=== PATIENT | male | born 1960 | race Caucasian/White ===

== ENCOUNTER 2016-08-17 08:11 | Inpatient (IN) ==
[2016-08-17] MEDS: 0.9 % Sodium Chloride 1,000 ML IVC SCH (09:14)
[2016-08-17] MEDS ORDERED: 0.9 % Sodium Chloride 1,000 ML ONE (09:25)
[2016-08-17] MEDS ORDERED: *HR* Heparin 10,000 UNIT/10 ML VIAL ONE (09:25)
[2016-08-17] MEDS ORDERED: Heparin 1,000 UNITS/500 mL NS 500 ML ONE (09:25)
[2016-08-17] MEDS ORDERED: Verapamil 5 MG/2 ML VIAL ONE (09:43)
[2016-08-17] MEDS ORDERED: Nitroglycerin 1,000 MCG/10 ML VIAL IV ONE (09:43)
[2016-08-17] MEDS ORDERED: *HR* FentaNYL (PF) 100 MCG/2 ML VIAL ONE (09:44)
[2016-08-17] MEDS ORDERED: *HR* Midazolam HCl 2 MG/2 ML VIAL ONE (09:44)
[2016-08-17] MEDS ORDERED: Nitroglycerin Spray 4.9 GM BOTTLE ONE (09:54)
--- NOTE | 2016-08-17 10:10 | Pre-Sedation Evaluation ---
Pre-sedation evaluation - Pre-sedation checklist Date of procedure: 08/17/16 Procedure: left heart cath Recent Vitals: Last Vital Signs Temp 98.6 F 08/17/16 09:16 Pulse 89 08/17/16 09:16 Resp 15 08/17/16 09:16 BP 106/78 08/17/16 09:16 Pulse Ox 95 08/17/16 09:16 H&P (including ROS) documented in medical record: No Previous reaction to sedatives/anesthetics: No Dietary Status: NPO after Midnight ASA Classification *see protocol: CLASS II-Mild systemic disease Plan of Care: Pt appropriate candidate for procedure/moderate/conscious sedation , Risks/benefits of procedure/sedation discussed w/ patient/family
--- NOTE | 2016-08-17 10:11 | History & Physical Report ---
Date of Encounter: 08/17/16 Time of Encounter: 10:00 24 Hour HP Update - Instructions Instructions: If the History and Physical is less than 30 days old and was completed prior to A.M. admission and or procedure and has NOT been updated on calendar day of procedure please complete this update prior to performing procedure. - Update Patient reports changes in Medical Condition: No Changes in examination, assessment, or condition: No Changes in Medication: No Preop tests/diagnostics Reviewed: Yes Surgery Remains Indicated: Yes Consent for Planned Operative Procedure(s) Verified: Yes
[2016-08-17] MEDS ORDERED: *HR* HYDROcodone/Acet 5/325 mg TABLET PO PRN (10:16)
[2016-08-17] MEDS ORDERED: Ondansetron 4 MG/2 ML VIAL IVP PRN (10:16)
[2016-08-17] MEDS ORDERED: Nitroglycerin 0.4 MG TAB.SUBL SL PRN (10:16)
[2016-08-17] MEDS ORDERED: Acetaminophen 325 MG TABLET PO PRN (10:16)
[2016-08-17] MEDS ORDERED: *HR* Heparin 5,000 UNIT/ML VIAL IVP PRN ×2 (10:19)
[2016-08-17] MEDS ORDERED: *HR* Heparin 5,000 UNIT/ML VIAL IVP ONE (10:19)
--- NOTE | 2016-08-17 10:23 | Invasive Diagnostic Lab Proc ---
Name: Fransico Barton Date of Study: 08/17/2016 Date: 1960 Ht: 73.0in Medical Record#: [id number] Age: 55 Wt: 214.00lb Gender: Male BSA: 2.21 Order #: [id number] BMI: 28.23 Physicians Procedure Physician: Roby Carrasco MD, [facility] Referring MD: Referring MD: Staff Name Position Time In Aurora Marquis RT (R) Pre-Op RT(R) Skylar Dupont RN Pre-Op Nurse Lindy Cano RN Sample Collector 09:40 AM Niecy Pedersen RT (R) Scrub 09:40 AM Paul Slater RT (R) Monitor 09:40 AM Indications Indication Unstable Angina Abnormal Test - Stress Procedures Performed Procedure L HRT ARTERY/VENTRICLE ANGIO Pre-Procedure Checklist Informed consent is complete signed and on chart. H\\T\\P is on chart. ID band is on and ID verified with patient. Patient NPO for procedure The procedure was described for the patient and questions were answered. Blood Pressure: 136/71 ECG is on chart. Rhythm: NSR Plan of Care Patient will tolerate the procedure without complications. Adequate level of comfort will be maintained. Hemodynamics will remain stable Patient will recover from procedure without complications. Respiratory function will be maintained. Cardiac rhythm will remain stable. Patient temperature will be maintained. Patient and/or family have verbalized understanding of the procedure. Patient Education Chief Complaint/Reason for Test: Cardiac Cath Developmental Category: Adult (18-64 years) Developmentally Appropriate for Age: Yes Learning Barriers: None Education Needs: Procedure Education Method: Verbal Information Taught: Cardiac Cath Educational Evaluation: Able to repeat information Intravenous Access Time IV Size Location DC'd Fluid/Drip Rate Units RN 09:11 AM Started with 20g 1 1/4" Lt Antecubital 0.9NaCl 50 ml/hr Skylar Dupont RN Allergies No Known Allergies Vital Signs Time BP (mmHg) HR (bpm) O2 Sat. RR (bpm) LOC 09:06 AM 106 / 78 89 95 % 15 5 = Fully awake and oriented or at pre-proc level 09:39 AM / % 5 = Fully awake and oriented or at pre-proc level 09:39 AM / % 4 = Oriented but drowsy 09:44 AM 136 / 71 79 96 % 17 09:46 AM 130 / 82 79 96 % 15 09:49 AM 122 / 79 84 94 % 20 09:52 AM 124 / 68 81 93 % 18 09:55 AM 123 / 74 81 93 % 18 09:58 AM 91 / 63 103 91 % 18 10:02 AM 109 / 70 97 91 % 18 10:04 AM 114 / 75 93 92 % 21 10:07 AM 117 / 68 % 09:54 AM / % 5 = Fully awake and oriented or at pre-proc level Procedural Medications Time Medication Dose Units Method Given By 09:47 AM Versed 2 mg Intravenous Lindy Cano RN 09:47 AM Fentanyl 50 mcg Intravenous Lindy Cano RN 09:50 AM Lidocaine 2% 0.5 ml Subcutaneous Roby Carrasco MD, [facility] 09:54 AM Nitroglycerin 0.4 mcg Sublingual Lindy Cano RN 09:55 AM Heparin 4000 units Nitroglycerin 200 mcg Verapamil 2.5 mg Intraarterial Roby Carrasco MD, [facility] ASA Classification: CLASS II- Mild systemic disease (i.e. well-controlled diabetes, hypertension, asthma, cigarette smoking) Kimberlyn Score Preprocedure Postprocedure Activity 2- Moves 4 extremities sustained head lift Activity 2- Moves 4 extremities sustained head lift Circulation 2- SBP +/= 20 points of pre-anesthetic level Circulation 2- SBP +/= 20 points of pre-anesthetic level Consciousness 2- Awake and alert oriented x 3 Consciousness 2- Awake and alert oriented x 3 O2 Saturation 2- Able to maintain O2 satruation of 92% on room air O2 Saturation 2- Able to maintain O2 satruation of 92% on room air Respiratory 2- Able to deep breathe and cough well Respiratory 2- Able to deep breathe and cough well Total Score 10 Total Score 10 Contrast Agent: Isovue Diagnostic Contrast: 60 ml Total Contrast: 60 ml Fluoro Dose: 258 mGy Procedure Log Time Note Enter By 09:38 AM Pt arrived to [employer] 2 at 09:38 [email or web address] 09:38 AM Patient charges- Angio tray pack, Navilyst 3mm J, Pulse Oximetry and ACIST tubing and transducer [email or web address] 09:39 AM Case Delayed No [email or web address] 09:39 AM Physician arrived 09:39 [email or web address] 09:39 AM Sign in performed according to hospital policy. [email or web address] 09:39 AM Meet and greet completed [email or web address] 09:39 AM ASA Class CLASS II- Mild systemic disease (i.e. well-controlled diabetes, hypertension, asthma, cigarette smoking) 09:39 AM Procedure start :39 :39 AM Time: :39 Patient comfortable and pain free: Yes :39 AM Time: :39LOC: 5 = Fully awake and oriented or at pre-proc level bw:40 AM CathStat 09:40 AM Lindy Cano RN Position: Sample Collector Time in: :40 :40 AM Niecy Pedersen RT (R) Position: Scrub Time in: :40 09:40 AM Paul Slater RT (R) Position: Monitor Time in: :40 09:43 AM Vitals capture started with the following parameters, Patient=Adult, Interval=3 min, Initial Uqqidxzg=327 mmHg, Deflation Rate=5 mmHg, Cuff placed on Right Arm 09:43 AM Hair removed from procedure site in holding area using clippers. Bilateral groin prepped with Chloraprep by Niecy Pedersen RT (R), safety strap applied then patient was draped. Skin intact. 09:43 AM Hair removed from procedure site in holding area using clippers. Right wrist prepped with Chloraprep by Nieyc Pedersen (R), safety strap applied then patient was draped. Skin intact. 09:43 AM Clinical Presentation: Unstable angina 09:44 AM HR=79 bpm, YSHJ=595/71 mmhg, SpO2=96.0 %, Resp=17 B/min, Comment=NSR 09:46 AM HR=79 bpm, BOSU=592/82 mmhg, SpO2=96.0 %, Resp=15 B/min, Comment=NSR 09:47 AM Time: 09:47 Versed 2 mg Intravenous Given by Lindy Cano RN [facility] 09:47 AM Time: 09:47 Fentanyl 50 mcg Intravenous Given by Lindy Cano RN [place] [address] 09:49 AM HR=84 bpm, YPVM=754/79 mmhg, SpO2=94.0 %, Resp=20 B/min, Comment=NSR 09:50 AM Time out performed according to hospital policy [facility] 09:50 AM Time: 09:50 0.5 ml Lidocaine 2% to right radial Subcutaneous Given by Roby Carrasco MD, [place] [address] 09:51 AM Pressure channel 1 zeroed. 09:52 AM Unsuccessful access attempt # 1 into the right Radial artery. Manual pressure applied to achieve hemostasis.. 09:52 AM HR=81 bpm, EPDC=822/68 mmhg, SpO2=93.0 %, Resp=18 B/min, Comment=NSR 09:54 AM Time: 09:39LOC: 4 = Oriented but drowsy 09:54 AM Time: 09:39 Patient comfortable and pain free: Yes [place] [address] :54 AM Time: 09:54 Nitroglycerin .4 mcg Sublingual Given by Lindy Cano RN [place] [address] 09:55 AM Access obtained by percutaneous puncture. 5Fr 10cm Terumo Glidesheath sheath placed in right Radial artery. [id number] [place] [address] 09:55 AM 0.035 260cm Navilyst 3mmJ wire [id number] [place] [address] 09:55 AM HR=81 bpm, EHJD=218/74 mmhg, SpO2=93.0 %, Resp=18 B/min, Comment=NSR 09:55 AM Time: 09:55 Patient given 4,000 units Heparin, 200 mcg Nitroglycerin, and 2.5 mg Verapamil Intraarterial by Roby Carrasco MD, [facility] 09:56 AM 5Fr TIG catheter inserted over the wire [place] [address] 09:57 AM Recorded Pressure: LV, HR=99, Condition=Condition 1 (Left Ventricle) LV 85/8/9 09:57 AM Catheter selectively placed in left ventricle [place] [address] 09:57 AM Bolus angiogram of left Ventricle complete: 10 ml/sec for a total of 30 mls [place] [address] 09:58 AM LB=788 bpm, NIBP=91/63 mmhg, SpO2=91.0 %, Resp=18 B/min, Comment=NSR 09:58 AM Recorded Pressure: LV, Ao, FF=185, Condition=Condition 1 (Left Ventricle) LV 95/0/13, (Aorta) Ao 84/57/67 09:59 AM RCA angiography performed in multiple views. 09:59 AM Recorded Pressure: Ao, HR=90, Condition=Condition 1 (Aorta) Ao 91/74/82 10:00 AM Catheter removed [email or web address] 10:00 AM Lesion found in Mid RCA. Pre Stenosis: 80 Pre SWATI Flow1 : [email or web address] 10:00 AM Lesion found in Distal RCA. Pre Stenosis: 95 Pre SWATI Flow 1: [email or web address] 10:00 AM Right Coronary, Right Posterior Descending Arteries with Right Posterolateral and Acute Marginal branches with 95 % stenosis. If graft is supplying this area, 0 % stenosis [email or web address] 10:01 AM 5Fr FL 4 catheter inserted over the wire [facility] [email or web address] 10:01 AM LCA angiography performed in multiple views. [email or web address] 10:02 AM HR=97 bpm, IBVW=427/70 mmhg, SpO2=91.0 %, Resp=18 B/min, Comment=NSR 10:03 AM Recorded Pressure: Ao, HR=96, Condition=Condition 1 (Aorta) Ao 83/68/75 10:04 AM HR=93 bpm, CWIV=867/75 mmhg, SpO2=92.0 %, Resp=21 B/min, Comment=NSR 10:04 AM Catheter removed [email or web address] 10:05 AM Lesion found in Proximal LAD. Pre Stenosis: 95 Pre SWATI Flow: [email or web address] 10:05 AM Proximal Left Anterior Descending Coronary Artery with 95% stenosis. If graft is supplying this territory, 0 % stenosis. [email or web address] 10:05 AM Lesion found in Mid Circumflex. Pre Stenosis: 100 Pre SWATI Flow: [email or web address] 10:05 AM Circumflex, Obtuse Marginal, Left Posterior Descending, and Left Posterolateral Coronary Arteries with 100 % stenosis. If graft is supplying this area, 0 % stenosis [email or web address] 10:05 AM Lesion found in 1st Marginal. Pre Stenosis: 90 Pre SWATI Flow: [email or web address] 10:06 AM Procedure completed at 10:06 [email or web address] 10:06 AM Arterial sheath pulled, Vasc Band closure device used and was Successful S/N. [email or web address] 10:06 AM 11 ml air in Vasc Band. [email or web address] 10:06 AM Sign out completed: Radiation Dose 257.56 mGy Fluoro Time: 1.7 Isovue 370 - 200ml contrast 60 ml given by Roby Carrasco MD, [facility]. Complications: NoneCardiac Rehab Consult needed: YesConfirmed administered medications: Yes [email or web address] 10:06 AM Post ECG NSR [email or web address] 10:07 AM 10:06 Post Pulses Rt Radial 2+ [email or web address] 10:07 AM Information taught Cardiac Cath and Vasc Band [email or web address] 10:07 AM Education needs Procedure, Plan of Care, and Disease Process [email or web address] 10:07 AM Learning barriers :Sedated [email or web address] 10:07 AM Education Methods Verbal [email or web address] 10:07 AM Education evaluation Needs further instruction [email or web address] 10:07 AM SXGK=862/68 mmhg, Comment=NSR 10:07 AM Site status No bleeding/hematoma - Rt Wrist as reported by Niecy Pedersen RT (R) at 10:07 [email or web address] 10:08 AM Delay to floor No [email or web address] 10:08 AM Family placed in consult room. [email or web address] 10:08 AM Complications: None [email or web address] 10:08 AM Fluoro Time: 1.7 [email or web address] 10:08 AM Isovue 370 - 200ml contrast 60 ml given by Roby Carrasco MD, [facility]. [email or web address] 10:09 AM Radiation Dose 257.56 mGy [email or web address] 10:09 AM Time: 09:54 Patient comfortable and pain free: Yes [email or web address] 10:09 AM Time: 09:54LOC: 5 = Fully awake and oriented or at pre-proc level [email or web address] 10:09 AM Vitals capture stopped. 10:10 AM Coronary Dominance: right [email or web address] 10:11 AM Patient out of room: 10:11 [email or web address] 10:12 AM Cardiothoracic surgeon consulted by physician [email or web address] 10:13 AM Report given to vladimir HIGUERA Pt taken to Room #26. 10:12 [email or web address] Complications Complication None None Hemodynamics Pressures Site Systolic/A Wave Diastolic/V Wave Mean LV 85 8 9 LV 95 0 13 AO 84 57 67 AO 91 74 82 AO 83 68 75 Post Procedure Information Rhythm: NSR Post procedural instructions were given Site Checks Time Location Status Staff Sheath In? Note 10:07 AM Rt Wrist No bleeding/hematoma Niecy Pedersen RT (R) Pulses Time Site Pre-Procedure Post-Procedure Note 08/17/2016 9:05:00 AM Bilateral DP Doppler 08/17/2016 9:05:00 AM Rt PT Doppler 08/17/2016 9:05:00 AM Lt PT 1+ 08/17/2016 9:06:00 AM Bilateral radial 2+ 10:06:00 AM Rt Radial 2+ Updated by Paul Slater RT (R) on 08/17/2016 10:17:05 AM Paul Slater RT electronically signed on 08/17/2016 10:17:32 AM with status of Final
[2016-08-17] MEDS ORDERED: Heparin 25,000 UNIT/500 ML D5W 25,000 UNIT/500 ML MLS IVC SCH (10:30)
[2016-08-17 11:27] LABS: Hemoglobin 16.3 g/dL (12.9-16.9); Mean Corpuscular HGB Conc 33.3 g/dL (31.6-35.5); Mean Corpuscular Hemoglobin 28.8 pg (28.0-33.3); Mean Corpuscular Volume 86.7 fL (83.0-100.0); Mean Platelet Volume 11.3 fL (9.4-12.4); Platelet Count 161 K/mcL (140-400); Red Blood Count 5.65 M/mcL (4.19-5.50); Red Cell Distribution Width 13.7 % (11.5-14.5)
[2016-08-17 11:31] LABS: INR 1.1; Prothrombin Time 12.3 Seconds (9.4-12.1)
[2016-08-17 11:37] LABS: Activated Partial Thrombo Time 64.5 Seconds (26.0-36.0)
--- NOTE | 2016-08-17 12:41 | Invasive Diagnostic Lab ---
Name: Fransico Barton Date of Study: 08/17/2016 Date: 1960 Ht: 185.4 cm /73.0 in Medical Record#: [id number] Age: 55 Wt: 97.1 kg / 214.00 lb Account/Order#: [id number] Gender: Male BSA: 2.21 Order #: [id number] Fluoro Dose: 258 mGy BMI: 28.23 Procedure Physician: Roby Carrasco MD, [facility] Referring MD: Referring MD: Procedures Performed: LEFT HEART CATH Indications: Unstable Angina, Abnormal Test - Stress Impressions: There is severe three vessel coronary artery disease. The left ventricle is normal and has mildly abnormal contractility EF 45% Recommendations: Optimal medical therapy of patient's disease. Aggressive risk factor modification. Suggest patient have Elective coronary artery bypass surgery. History/Risk Factors: Numbness lower extremities Current/Recent Smoker Procedure Access obtained in the right Radial artery by percutaneous puncture Complications: None, None Contrast: Isovue 60ml Hemodynamics: Pressures Site Systolic/ A Wave Diastolic/ V Wave End Diastolic/ Mean HR LV 85 8 9 99 LV 95 0 13 100 AO 84 57 67 101 AO 91 74 82 90 AO 83 68 75 96 LV Ventriculography Ejection Method: LV Gram Ejection Fraction: 45% Wall Motion: HOOK Anterobasal Mild hypokinesis Anterolateral Mild hypokinesis Apical: Mild hypokinesis Inferoapical Mild hypokinesis Inferobasal Mild hypokinesis Coronary Dominance: right Lesion Findings/Interventions * Left Main Coronary Artery The LMCA is angiographically free of disease. * Left Anterior Descending There is a 95% stenosis in the Proximal LAD. * Circumflex There is a 99% stenosis in the Mid Circumflex. There is a 90% stenosis in the 1st Marginal. SWATI 2 flow * Right Coronary Artery SWATI 1 flow Updated by Paul AGUILAR (R) on 08/17/2016 10:16:28 AM Roby Carrasco MD, FACC electronically signed on 08/17/2016 12:36:18 PM with status of Final
--- NOTE | 2016-08-17 12:44 | Cardiothoracic Consult Note ---
Date of Encounter: 08/17/16 Time of Encounter: 12:41 Assessment and Plan (1) Coronary artery disease Current Visit: Yes Status: Acute The assessment and plan as outlined above was discussed with the patient and/or family members who expressed understanding and agreement. All questions were answered. The patient has severe triple-vessel disease with decreased ventricular function. He is a candidate for coronary artery bypass grafting. This would include a left internal mammary artery to the LAD. A vein graft to the circumflex. A vein graft to the distal right coronary artery and possibly sequenced to the acute marginal branch of the right coronary artery. Risks of surgery include , infection, stroke, bleeding, myocardial infarction, clots around the heart, renal or respiratory failure, acute or chronic graft closure, phrenic nerve injury and sternal dehiscence. The procedure, its risks and if it's and alternatives were explained and he does wish to proceed. We will schedule him for tomorrow. At this point, the patient and his family have no questions. Qualifiers: Coronary Disease-Associated Artery/Lesion type: [place] artery [place] vs. transplanted heart: [place] heart Associated angina: with unstable angina Qualified Code(s): I25.110 - Atherosclerotic heart disease of [place] coronary artery with unstable angina pectoris - History of Present Illness History of present illness: Mr. Barton is a 55 year old male History of present illness. The patient is a 55-year-old gentleman with a long history of exertional chest pain. He did have a positive stress test. Cardiac catheterization done today revealed severe triple-vessel disease with an ejection fraction of 45%. Cardiac echo revealed an ejection fraction of 40% with no significant valvular disease. He has been referred for open heart surgery. Past medical history. He has been healthy. No history of diabetes, hypertension or hypercholesterolemia. He does have a history of what sounds like claudication in his right leg with heaviness in the calves with exertion. This is also associated with numbness. The only medication home was aspirin. He has no known allergies. Social history. He lives with his in [place]. 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 He does smoke 1-1/2 packs of cigarettes per day. Rarely drinks alcohol. Family history is positive for stroke and cancer. Review of systems for the patient is negative for stroke or TIA. Negative for saphenous vein varicosities or strippings. Past Med Surg Social Fam HX - Past Medical History Medical history: no medical history Psychiatric history: no psych history - Past Surgical History Surgical History: non-contributory - Social History Smoking Status: Current every day smoker Smokeless Tobacco Status: No Alcohol use: occasionally Drug use: none - Family History Father Age: 76 Age at : 76 Cause of : cancer Hx Family Cardiac Disorders: No Hx Family Respiratory Disorders: No Hx Family Cancer: Yes (lymphoma) Hx Family GI Disorders: No Hx Family Genitourinary Disorders: No Hx Family Endocrine Disorder: Yes (dm) Hx Family Musculoskeletal Disorders: No Hx Family Neuromuscular Disorders: No Hx Family Neurologic Disorders: No Hx Family HEENT Disorders: No Hx Family Autoimmune Disorders: No Hx Family Reproductive Disorders: No Hx Family Psychosocial Disorders: No Hx Family Medical Disorders: No Medications and Allergies Aspirin [Lo-Dose Aspirin EC] 81 mg PO DAILY 08/17/16 [History] Allergies No Known Allergies Allergy (Verified 10/07/15 22:43) All Systems Review: A 10-system review of systems was performed and is negative for pertinent findings except as documented above in the HPI. Physical Examination Vital Signs, Last 4 Hours Temp Pulse Resp BP Pulse Ox 08/17/16 12:00 68 18 132/77 93 08/17/16 11:45 73 18 121/81 93 08/17/16 11:27 93 08/17/16 11:19 88 20 101/78 92 08/17/16 10:52 97.4 F L 75 20 117/81 93 08/17/16 09:16 98.6 F 89 15 106/78 95 Pupils are equal, round and reactive to light and accommodation. He is edentulous. Neck is supple. Trachea in the midline. No thyromegaly or carotid bruits. Lungs are clear to percussion and auscultation. Heart is in a regular rate and rhythm. Abdomen is benign. No tenderness, rebound or guarding. He does have a right inguinal hernia. Extremities without edema. No saphenous vein varicosities or strippings. Cranial nerves, motor and sensory intact. Results 08/17/16 11:18 Lab Results, Last 24 hours 08/17/16 08/17/16 11:18 11:18 WBC 13.6 H Hgb 16.3 Hct 49.0 Plt Count 161 INR 1.1 APTT 64.5 H D Consult Discharge Plan - Plan Referrals: Salvatore Norman MD [Primary Care Provider] -
[2016-08-17 14:00] LABS: Basophils # 0.1 K/mcL (0.0-0.2); Basophils % 0.8 %; Eosinophils # 0.2 K/mcL (0.0-0.6); Eosinophils % 1.7 %; Hematocrit 51.2 % (37.5-50.1); Hemoglobin 17.1 g/dL (12.9-16.9); Immature Granulocytes % 0.3 % (0-4); Lymphocytes # 2.6 K/mcL (0.6-4.6); Lymphocytes % 22.5 %; Mean Corpuscular HGB Conc 33.4 g/dL (31.6-35.5); Mean Corpuscular Hemoglobin 29.2 pg (28.0-33.3); Mean Corpuscular Volume 87.4 fL (83.0-100.0); Mean Platelet Volume 11.9 fL (9.4-12.4); Monocytes # 0.6 K/mcL (0.0-1.3); Neutrophils # 8.1 K/mcL (1.6-8.9); Platelet Count 165 K/mcL (140-400); Red Blood Count 5.86 M/mcL (4.19-5.50); Red Cell Distribution Width 13.9 % (11.5-14.5); Segmented Neutrophils % 69.7 %
[2016-08-17 14:13] LABS: INR 1.1
[2016-08-17 14:17] LABS: Activated Partial Thrombo Time 31.8 Seconds (26.0-36.0)
[2016-08-17 14:43] LABS: BUN/Creatinine Ratio 18 (6-26); Blood Urea Nitrogen 14 mg/dL (8-26); Calcium 9.5 mg/dL (8.6-10.8); Carbon Dioxide 23 mEq/L (19-29); Chloride 105 mEq/L (98-109); Chol/HDL Ratio 4.9 (0-4.9); Cholesterol 172 mg/dL (< 200); Glucose 122 mg/dL (70-99); HDL Cholesterol 35 mg/dL (40-59); LDL Cholesterol,Calculated 104 mg/dL (0-99); Osmolality,Calculated 286 (280-300); Potassium 3.9 mEq/L (3.5-4.5); Sodium 137 mEq/L (136-145); Triglycerides 163 mg/dL (< 150); eGFR For African Americans > 60 (> 60); eGFR For Non-African Americans > 60 (> 60)
[2016-08-17 15:15] LABS: Hemoglobin A1C 5.5 %
[2016-08-17 18:44] LABS: Bilirubin,Urine Negative (Negative); Blood,Urine Negative (Negative); Clarity,Urine Clear (Clear); Color,Urine Yellow (Yellow); Glucose,Urine (UA) Normal (Normal); Ketones,Urine Negative (Negative); Leukocyte Esterase,Urine Negative (Negative); Nitrite,Urine Negative (Negative); PH,Urine 6.5 pH Units (5.0-8.0); Protein,Urine Negative (Neg-Trace); Specific Gravity,Urine > 1.030 (1.010-1.025); Urobilinogen,Urine Normal (Normal)
[2016-08-17] MEDS: Chlorhexidine Rinse 15 ML MOUTHWASH MM SCH (21:54)
[2016-08-18] MEDS: Chlorhexidine Rinse 15 ML MOUTHWASH MM SCH ×2 (05:20→20:10)
[2016-08-18 05:48] LABS: BUN/Creatinine Ratio 15 (6-26); Blood Urea Nitrogen 11 mg/dL (8-26); Calcium 8.8 mg/dL (8.6-10.8); Carbon Dioxide 21 mEq/L (19-29); Chloride 108 mEq/L (98-109); Glucose 101 mg/dL (70-99); Osmolality,Calculated 284 (280-300); Potassium 4.2 mEq/L (3.5-4.5); Sodium 137 mEq/L (136-145); eGFR For African Americans > 60 (> 60); eGFR For Non-African Americans > 60 (> 60)
[2016-08-18 05:56] LABS: Basophils # 0.1 K/mcL (0.0-0.2); Basophils % 0.8 %; Eosinophils # 0.2 K/mcL (0.0-0.6); Eosinophils % 2.7 %; Hematocrit 47.6 % (37.5-50.1); Immature Granulocytes % 0.4 % (0-4); Lymphocytes % 33.5 %; Mean Corpuscular HGB Conc 31.9 g/dL (31.6-35.5); Mean Corpuscular Hemoglobin 28.3 pg (28.0-33.3); Mean Corpuscular Volume 88.6 fL (83.0-100.0); Mean Platelet Volume 11.9 fL (9.4-12.4); Monocytes # 0.8 K/mcL (0.0-1.3); Monocytes % 9.1 %; Neutrophils # 4.8 K/mcL (1.6-8.9); Platelet Count 148 K/mcL (140-400); Red Blood Count 5.37 M/mcL (4.19-5.50); Red Cell Distribution Width 13.7 % (11.5-14.5); Segmented Neutrophils % 53.5 %
[2016-08-18] MEDS ORDERED: ceFAZolin 2,000 MG in D5% in Water 100 ML IVPB ONE (06:00)
[2016-08-18 06:11] LABS: Hemoglobin 15.2 g/dL (12.9-16.9)
[2016-08-18] MEDS ORDERED: *HR* Midazolam HCl 5 MG/5 ML VIAL IVP ONE (07:13)
[2016-08-18] MEDS ORDERED: *HR* FentaNYL (PF) 250 MCG/5 ML VIAL ONE (07:20)
[2016-08-18] MEDS ORDERED: Verapamil 5 MG/2 ML VIAL ONE (07:32)
--- NOTE | 2016-08-18 07:36 | Anesthesia Evaluation PreOp ---
Date of Encounter: 08/18/16 Time of Encounter: 07:25 - Past History Cardiac History: [place] Pulmonary History: Smoker WORK[employer] History: Denies Any Significant HX Other Medical History: Denies Any Significant HX Anesthesia History: No Prior Anesthetic Complications Alcohol Use: occasionally Drug use: none Medications and Allergies Aspirin [Lo-Dose Aspirin EC] 81 mg PO DAILY 08/17/16 [History] Allergies No Known Allergies Allergy (Verified 10/07/15 22:43) - Meds/Allergy Pre-op Review Medications Reviewed: Yes Allergies Reviewed: Yes Beta Blockers on Current Med List: Yes Anesthesia Results - Labs 08/18/16 04:50 08/18/16 04:50 - Imaging EKG: report reviewed Chest x-ray: report reviewed Additional studies: Cardiac cath revealed LVEF=40-45% Anesthesia Exam - HEENT Mallampati: II - Pulmonary Breath Sounds: bilateral Clear Anesthesia Assess/Plan ASA Score: 4 Modified Upson Scale for Level of Consciousness: Cooperative, oriented, and tranquil Anesthetic Plan: General Monitoring Plan: Standard Monitors, A-Line, PAC, ANGELIC Recovery Plan: ICU
[2016-08-18] MEDS ORDERED: Ondansetron 4 MG/2 ML VIAL ONE (08:48)
[2016-08-18] MEDS ORDERED: Dexamethasone 4 MG/ML VIAL ONE (08:48)
[2016-08-18] MEDS ORDERED: *HR* Rocuronium Bromide 50 MG/5 ML VIAL ONE (08:48)
[2016-08-18] MEDS ORDERED: *HR* Heparin 5,000 UNIT/ML VIAL ONE (08:49)
[2016-08-18] MEDS ORDERED: *HR* Etomidate 20 MG/10 ML AMPUL IVP ONE (08:49)
[2016-08-18] MEDS ORDERED: Lidocaine 2% Syringe 100 MG/5 ML ONE (08:49)
[2016-08-18] MEDS ORDERED: Tranexamic Acid 1,000 MG/10 ML VIAL ONE (08:49)
[2016-08-18] MEDS ORDERED: Nitroglycerin 25 MG/250 ML INFUS..BTL IVC ONE (09:52)
[2016-08-18] MEDS ORDERED: Albumin Human 5% 50.0 GM/1,000 ML VIAL ONE (09:53)
[2016-08-18] MEDS ORDERED: Protamine Sulfate 50 MG/5 ML VIAL IVP ONE (11:05)
[2016-08-18] MEDS ORDERED: Insulin Regular, Human 100 UNIT/ML IV PRN (11:35)
[2016-08-18] MEDS ORDERED: *HR* Promethazine 25 MG/ML VIAL IVP PRN (11:35)
[2016-08-18] MEDS ORDERED: *HR* Dextrose 50 % in Water (Syg) 50 ML SYRINGE IVP PRN (11:35)
[2016-08-18] MEDS ORDERED: Potassium Chloride 40 MEQ/200 ML BAG IVPB PRN (11:35)
[2016-08-18] MEDS ORDERED: Naloxone 0.4 MG/ML INJ IVP PRN (11:35)
[2016-08-18] MEDS ORDERED: *HR* Phenylephrine 10 MG/ML VIAL ONE (11:41)
[2016-08-18] MEDS ORDERED: Insulin Human Regular 100 UNIT in 0.9 % Sodium Chloride 100 ML IVC SCH (11:45)
[2016-08-18] MEDS ORDERED: Norepinephrine 4 MG in D5% in Water 250 ML IVC SCH (11:45)
[2016-08-18] MEDS: Nitroglycerin 25 MG/250 ML INFUS..BTL IVC SCH ×2 (11:54→20:30)
--- NOTE | 2016-08-18 12:01 | Anesthesia Evaluation Post Op ---
Date of Encounter: 08/18/16 Time of Encounter: 12:30 - Vital Signs Vital Signs: vital signs stable - Lungs Lungs: Clear Ascult./Percussion - Airway Airway: Non-obstructed - Cardiovascular Regular Rate - Mental Status Mental Status: Sedated - Nausea Vomiting Nausea Vomiting: Not Present - Hydration Hydration: Ny catheter Notes: 08/18/16 12:00 patient stable post op open heart surgery, no complications
--- NOTE | 2016-08-18 12:01 | Operative Note ---
Date of procedure: 08/18/16 Procedure in Detail: Preoperative diagnosis. Coronary artery disease. Postoperative diagnosis. Same. Procedures. Coronary artery bypass grafting 3 with the left internal mammary artery to the LAD and the aorta to the obtuse marginal branch of the circumflex and right coronary artery with saphenous vein. Surgeon. Dr. Nahid Crocker. Asst. Salvatore House. The patient is a 55-year-old gentleman who presented with unstable angina. Cardiac catheterization and echocardiogram revealed decreased ventricular function with severe coronary artery disease. He was referred for surgery. He was brought to the operating room where he underwent a general anesthetic. The right greater saphenous vein was harvested from the ankle to the knee in the left greater saphenous vein was harvested from the ankle to the knee. These were both done with 2 small incisions using the scope. These incisions were consulted with closed with a deep layer of 2-0 Vicryl and a 3-0 Vicryl subcuticular stitch. Standard median sternotomy was performed. Left internal mammary artery retractor was inserted and the left internal mammary artery was harvested in standard fashion using the Bovie electrocoagulation. Following this, mammary retractor was removed and the standard sternal global lead was inserted. Pericardium was opened in the midline and suspended with 2-0 silk stay sutures. Double purse string of 20 [place] was placed in the aorta for the aortic cannulation site. Pursestring of 20 [place] was placed in the right atrial appendage for the venous uptake. The patient was placed on cardiopulmonary bypass and cooled to 32. A pursestring of 3-0 silk was placed in the aorta and the cardioplegia needle was inserted through here. This was also used as an active and passive aortic vent. The aorta was crossclamped and a dose of cardioplegia was given. Topical cooling with iced saline slush was also done. Attention was first turned to the circumflex. The obtuse marginal branch was dissected free with the Elem blade and opened with the Elem blade and the Trotter scissors. This had a lumen of 1/2 mm with moderate diffuse disease. A standard end-to-side anastomosis was constructed using the saphenous vein and a 7-0 Prolene. At this point, the patient received additional antegrade cardioplegia. Attention was turned to the right coronary artery. The acute marginal branch in the posterior descending branches were too small and diffusely diseased for grafting. The distal right coronary artery was dissected free with the Elem blade and opened with the Elem blade and a Trotter scissors. This had a lumen of 1-1/2 mm with moderate diffuse disease. A standard end-to-side anastomosis was constructed using the saphenous vein and a 7-0 Prolene. When this was completed, the patient received the last dose of antegrade cardioplegia. Mammary pedicle was harvested. 2 medium clips were applied distally and was divided with the Metzenbaum scissors. Proximal end was trimmed and brought into the wound. The LAD was dissected free with the Elem blade and opened with the Elem blade and the Trotter scissors. This had a lumen of 1-1/2 mm with moderate diffuse disease. A standard end-to-side anastomosis was constructed using the mammary artery and a 7-0 Prolene. When this was completed, the previously placed bulldog clamp was removed. The hemostasis was good. Pedicle was tacked to the surface of the heart using 2 #5-0 silk sutures. Cross-clamp was removed and rewarming was begun. Total cross-clamp time was 54 minutes. Side biting clamp was placed on the aorta and the cardioplegia needle was removed. 2 holes were made in the aorta using the Elem blade and the 4.5 mm aortic punch. 2 proximal anastomoses were constructed using the saphenous veins and 5-0 Prolene's. The circumflex anastomosis was superior and the right anastomosis was inferior. When this is completed, the side-biting clamp was removed. Grafts were de-aired is #25-gauge needle and the previously placed bulldog clamps were removed. Distal anastomoses were inspected and found to be hemostatic. Proximal anastomoses were marked with marking Ray-Cr sponge. A pair of ventricular pacing wires was left. A total of 3 chest tubes were left. A 32 right lateral chest tube to the left pleural space. A 3 trial chest tube to the pericardial well. A 42 mediastinal chest tube. The patient was weaned from bypass. He was decannulated and protamine was given hemostasis was good and the hemodynamics were good. Pericardium was loosely closed with 2-0 silk sutures. Sternum was closed with #7 sternal wires in simple and figure of 8 fashion. The fascia from 1 and 1 Vicryl. Subcutaneous tissues with a 2-0 Vicryl. Skin was closed with a 3-0 Vicryl subcuticular stitch. The patient tolerated the procedure well and was returned intensive care unit in satisfactory and stable condition. Total cross-clamp time was 54 minutes. Total bypass time was 89 minutes. He been cooled to 32.
[2016-08-18 12:14] LABS: ABG Base Excess 1.3 mEq/L (-2.0 to 3.0); ABG HCO3 28.1 mEQ/L (21-27); ABG Oxygen Saturation 88 % (95-98); ABG PCO2 52 mmHg (35-45); ABG PO2 59 mmHg (85-104); ABG TCO2 29.7 mEq/L (20-26)
[2016-08-18 12:15] LABS: INR 1.3; Prothrombin Time 13.6 Seconds (9.4-12.1)
[2016-08-18 12:16] LABS: ABG PH 7.34 pH Units (7.32-7.45); Basophils # 0.1 K/mcL (0.0-0.2); Basophils % 0.4 %; Blood Gas FiO2 50 %; Blood Gas PEEP 5 cm H2O; Blood Gas Respiration Rate 10; Blood Gas VT 600 cc; Eosinophils # 0.1 K/mcL (0.0-0.6); Eosinophils % 0.6 %; Hematocrit 43.5 % (37.5-50.1); Hemoglobin 14.4 g/dL (12.9-16.9); Immature Granulocytes % 1.1 % (0-4); Lymphocytes % 13.3 %; Mean Corpuscular HGB Conc 33.1 g/dL (31.6-35.5); Mean Corpuscular Hemoglobin 28.9 pg (28.0-33.3); Mean Corpuscular Volume 87.3 fL (83.0-100.0); Mean Platelet Volume 11.5 fL (9.4-12.4); Monocytes # 0.9 K/mcL (0.0-1.3); Neutrophils # 12.1 K/mcL (1.6-8.9); Platelet Count 104 K/mcL (140-400); Red Blood Count 4.98 M/mcL (4.19-5.50); Red Cell Distribution Width 13.7 % (11.5-14.5); Segmented Neutrophils % 78.6 %
[2016-08-18 12:18] LABS: Lymphocytes # 2.1 K/mcL (0.6-4.6)
[2016-08-18 12:25] LABS: BUN/Creatinine Ratio 13 (6-26); Blood Urea Nitrogen 9 mg/dL (8-26); Calcium 9.4 mg/dL (8.6-10.8); Carbon Dioxide 26 mEq/L (19-29); Chloride 108 mEq/L (98-109); Glucose 99 mg/dL (70-99); Magnesium 2.7 mg/dL (1.6-2.6); Osmolality,Calculated 289 (280-300); Potassium 3.8 mEq/L (3.5-4.5); Sodium 140 mEq/L (136-145); eGFR For African Americans > 60 (> 60); eGFR For Non-African Americans > 60 (> 60)
[2016-08-18] MEDS: *HR* Morphine 2 MG/ML SYRINGE IVP PRN ×5 (12:26→22:08)
[2016-08-18] MEDS: niCARdipine 40 MG/200 ML MLS IVC SCH ×2 (12:26→20:30)
[2016-08-18] MEDS: Aspirin 81 MG TAB.CHEW PO SCH (12:38)
[2016-08-18] MEDS: Nicotine 21 MG PATCH.TD24 TD SCH (12:38)
[2016-08-18] MEDS ORDERED: Dexmedetomidine HCl 400 MCG/100 ML MLS IVC ONE (12:42)
[2016-08-18] MEDS ORDERED: *HR* Vecuronium 10 MG VIAL ONE (13:06)
[2016-08-18] MEDS: 0.9 % Sodium Chloride 1,000 ML IVC SCH ×3 (13:17→22:03)
[2016-08-18 14:02] LABS: ABG Base Excess -2.4 mEq/L (-2.0 to 3.0); ABG HCO3 23.2 mEQ/L (21-27); ABG Hematocrit 45 % (35-51); ABG Oxygen Saturation 100 % (95-98); ABG PCO2 42 mmHg (35-45); ABG PH 7.35 pH Units (7.32-7.45); ABG PO2 210 mmHg (85-104); ABG TCO2 24.5 mEq/L (20-26)
[2016-08-18 14:03] LABS: ABG Glucose 79 mg/dL (60-95); ABG Ionized Calcium 1.07 mmol/L (1.15-1.35)
[2016-08-18 14:05] LABS: ABG Base Excess -1.3 mEq/L (-2.0 to 3.0); ABG HCO3 24.3 mEQ/L (21-27); ABG Hematocrit 44 % (35-51); ABG Oxygen Saturation 100 % (95-98); ABG PCO2 43 mmHg (35-45); ABG PH 7.36 pH Units (7.32-7.45); ABG PO2 302 mmHg (85-104); ABG TCO2 25.6 mEq/L (20-26)
[2016-08-18 14:06] LABS: ABG Glucose 101 mg/dL (60-95); ABG Ionized Calcium 1.18 mmol/L (1.15-1.35)
[2016-08-18 14:08] LABS: ABG Base Excess -1.1 mEq/L (-2.0 to 3.0); ABG Glucose 201 mg/dL (60-95); ABG HCO3 23.5 mEQ/L (21-27); ABG Hematocrit 30 % (35-51); ABG Ionized Calcium 0.89 mmol/L (1.15-1.35); ABG Oxygen Saturation 100 % (95-98); ABG PCO2 38 mmHg (35-45); ABG PO2 405 mmHg (85-104); ABG TCO2 24.7 mEq/L (20-26)
[2016-08-18 14:10] LABS: VBG Ionized Calcium 0.92 mmol/L (1.15-1.35); VBG PH 7.36 pH Units (7.32-7.42)
[2016-08-18 14:12] LABS: ABG Base Excess -0.8 mEq/L (-2.0 to 3.0); ABG HCO3 24.3 mEQ/L (21-27); ABG Hematocrit 30 % (35-51); ABG Oxygen Saturation 100 % (95-98); ABG PCO2 41 mmHg (35-45); ABG PH 7.38 pH Units (7.32-7.45); ABG PO2 578 mmHg (85-104); ABG TCO2 25.6 mEq/L (20-26)
[2016-08-18 14:13] LABS: ABG Glucose 189 mg/dL (60-95); ABG Ionized Calcium 1.13 mmol/L (1.15-1.35)
[2016-08-18 14:15] LABS: ABG Base Excess -2.3 mEq/L (-2.0 to 3.0); ABG Glucose 189 mg/dL (60-95); ABG HCO3 23.2 mEQ/L (21-27); ABG Hematocrit 36 % (35-51); ABG Ionized Calcium 1.25 mmol/L (1.15-1.35); ABG Oxygen Saturation 100 % (95-98); ABG PCO2 42 mmHg (35-45); ABG PH 7.35 pH Units (7.32-7.45); ABG PO2 436 mmHg (85-104); ABG TCO2 24.5 mEq/L (20-26)
[2016-08-18 14:17] LABS: ABG Base Excess 1.3 mEq/L (-2.0 to 3.0); ABG Glucose 133 mg/dL (60-95); ABG HCO3 26.6 mEQ/L (21-27); ABG Hematocrit 38 % (35-51); ABG Oxygen Saturation 100 % (95-98); ABG PCO2 44 mmHg (35-45); ABG PH 7.39 pH Units (7.32-7.45); ABG PO2 257 mmHg (85-104)
[2016-08-18 14:18] LABS: ABG Ionized Calcium 1.12 mmol/L (1.15-1.35)
[2016-08-18 14:30] LABS: ABG Base Excess 0.8 mEq/L (-2.0 to 3.0); ABG HCO3 26.6 mEQ/L (21-27); ABG Oxygen Saturation 95 % (95-98); ABG PCO2 46 mmHg (35-45); ABG PH 7.37 pH Units (7.32-7.45); ABG PO2 76 mmHg (85-104); Blood Gas FiO2 40 %
[2016-08-18] MEDS ORDERED: ceFAZolin 2,000 MG in D5% in Water 100 ML IVPB SCH (16:00)
[2016-08-18] MEDS: ceFAZolin 2,000 MG in D5% in Water 100 ML IVPB SCH (16:18)
[2016-08-18 16:48] LABS: ABG Base Excess 0.8 mEq/L (-2.0 to 3.0); ABG HCO3 26.6 mEQ/L (21-27); ABG Oxygen Saturation 92 % (95-98); ABG PCO2 46 mmHg (35-45); ABG PH 7.37 pH Units (7.32-7.45); ABG PO2 65 mmHg (85-104)
[2016-08-18 16:49] LABS: Blood Gas FiO2 44 %
[2016-08-18 17:05] LABS: BUN/Creatinine Ratio 12 (6-26); Blood Urea Nitrogen 9 mg/dL (8-26); Calcium 8.3 mg/dL (8.6-10.8); Carbon Dioxide 26 mEq/L (19-29); Chloride 107 mEq/L (98-109); Glucose 172 mg/dL (70-99); Osmolality,Calculated 287 (280-300); Potassium 4.4 mEq/L (3.5-4.5); Sodium 137 mEq/L (136-145); eGFR For African Americans > 60 (> 60); eGFR For Non-African Americans > 60 (> 60)
[2016-08-18] MEDS: *HR* OxyCODONE/APAP 5/325 TABLET PO PRN (20:10)
--- NOTE | 2016-08-18 23:47 | Electrocardiograph Report ---
[address] [place], [place] [address] Test Date: 2016-08-18 Pat Name: Fransico Barton Department: 109 Room: [facility] Gender: M Area Director: LENO : 1960 Requested By: Nahid Crocker Order Number: [id number] Reading MD: Janie Gleason Measurements Intervals [place] Rate: 87 P: 14 [place]: 188 QRS: -62 QRSD: 130 T: 126 QT: 376 QTc: 420 Interpretive Statements SINUS RHYTHM LEFT ANTERIOR FASCICULAR BLOCK POSSIBLE LATERAL MYOCARDIAL INFARCTION, OF INDETERMINATE AGE ST DEPRESSION, CONSIDER SUBENDOCARDIAL INJURY Electronically Signed On 08-18-2016 23:46:41 EDT by Janie Gleason
[2016-08-19] MEDS: ceFAZolin 2,000 MG in D5% in Water 100 ML IVPB SCH (00:01)
[2016-08-19] MEDS: niCARdipine 40 MG/200 ML MLS IVC SCH (00:02)
[2016-08-19] MEDS: *HR* OxyCODONE/APAP 5/325 TABLET PO PRN ×5 (00:11→23:58)
[2016-08-19] MEDS: Nitroglycerin 25 MG/250 ML INFUS..BTL IVC SCH (00:59)
[2016-08-19] MEDS: *HR* Morphine 2 MG/ML SYRINGE IVP PRN (03:00)
[2016-08-19 03:10] LABS: INR 1.2
[2016-08-19 03:11] LABS: Basophils % 0.3 %; Eosinophils % 0.1 %; Hemoglobin 12.1 g/dL (12.9-16.9); Immature Granulocytes % 0.7 % (0-4); Lymphocytes # 1.5 K/mcL (0.6-4.6); Mean Corpuscular HGB Conc 32.7 g/dL (31.6-35.5); Mean Corpuscular Hemoglobin 28.7 pg (28.0-33.3); Mean Corpuscular Volume 87.7 fL (83.0-100.0); Mean Platelet Volume 12.5 fL (9.4-12.4); Monocytes # 1.2 K/mcL (0.0-1.3); Monocytes % 8.1 %; Neutrophils # 11.9 K/mcL (1.6-8.9); Platelet Count 102 K/mcL (140-400); Red Blood Count 4.22 M/mcL (4.19-5.50); Red Cell Distribution Width 13.8 % (11.5-14.5); Segmented Neutrophils % 80.8 %
[2016-08-19 03:13] LABS: Activated Partial Thrombo Time 28.9 Seconds (26.0-36.0)
[2016-08-19 03:14] LABS: BUN/Creatinine Ratio 12 (6-26); Blood Urea Nitrogen 8 mg/dL (8-26); Calcium 8.3 mg/dL (8.6-10.8); Carbon Dioxide 24 mEq/L (19-29); Chloride 105 mEq/L (98-109); Glucose 109 mg/dL (70-99); Magnesium 1.8 mg/dL (1.6-2.6); Osmolality,Calculated 281 (280-300); Potassium 4.1 mEq/L (3.5-4.5); eGFR For African Americans > 60 (> 60); eGFR For Non-African Americans > 60 (> 60)
[2016-08-19 03:15] LABS: Sodium 136 mEq/L (136-145)
--- NOTE | 2016-08-19 08:05 | Cardiothoracic Progress Note ---
Date of Encounter: 08/19/16 Time of Encounter: 08:03 - Assessment and plan (1) Coronary artery disease Current Visit: Yes Status: Acute We will discontinue the [place] catheter, arterial line, [place] and IV fluids. We will transfer the patient to the floor. We will leave his chest tubes until tomorrow. Qualifiers: Coronary Disease-Associated Artery/Lesion type: [place] artery [place] vs. transplanted heart: [place] heart Associated angina: with unstable angina Qualified Code(s): I25.110 - Atherosclerotic heart disease of [place] coronary artery with unstable angina pectoris - Subjective Interval history: The patient complains of mild postoperative pain. Vital Signs, Last 4 Hours Temp Pulse Resp BP Pulse Ox 08/19/16 07:57 16 91 08/19/16 06:04 98.6 F 98 16 118/50 91 08/19/16 05:00 98.6 F 98 16 116/51 91 Oxgyen Flow Rate Oxygen Flow Rate (LPM) 4 Clinical Data, last 8 Hours Output, Chest Tube Drainage 10 Amount [Mediastinal #3] Output, Chest Tube Drainage 12 Amount [Mediastinal #3] Output, Chest Tube Drainage 5 Amount [Mediastinal #3] Output, Chest Tube Drainage 10 Amount [Mediastinal #3] Output, Chest Tube Drainage 5 Amount [Mediastinal #3] Output, Chest Tube Drainage 10 Amount [Mediastinal #3] Output, Chest Tube Drainage 5 Amount [Mediastinal #2] Output, Chest Tube Drainage 5 Amount [Mediastinal #2] Output, Chest Tube Drainage 30 Amount [Upper Mediastinal #1] Output, Chest Tube Drainage 5 Amount [Upper Mediastinal #1] Output, Chest Tube Drainage 10 Amount [Upper Mediastinal #1] Output, Chest Tube Drainage 5 Amount [Upper Mediastinal #1] Output, Chest Tube Drainage 5 Amount [Upper Mediastinal #1] Weight 08/17/16 08/18/16 08/19/16 23:59 23:59 23:59 Weight 97.069 kg 98.6 kg Lungs are clear to percussion and auscultation. Heart is in a normal sinus rhythm. All incisions are healing well without signs of infection and the sternum is stable. Chest x-ray reveals atelectasis. Chest tube drainage is minimal. - Labs 08/19/16 03:00 08/19/16 03:00 Lab Results, Last 24 hours 08/18/16 08/18/16 08/18/16 12:00 12:00 12:00 WBC 15.4 H D Hgb 14.4 Hct 43.5 Plt Count 104 L INR 1.3 APTT 33.0 Sodium 140 Potassium 3.8 Chloride 108 Carbon Dioxide 26 BUN 9 Creatinine 0.70 L Glucose 99 Calcium 9.4 Magnesium 2.7 H 08/18/16 08/19/16 08/19/16 16:34 03:00 03:00 WBC 14.8 H Hgb 12.1 L D Hct 37.0 L Plt Count 102 L INR 1.2 APTT 28.9 Sodium 137 Potassium 4.4 Chloride 107 Carbon Dioxide 26 BUN 9 Creatinine 0.76 Glucose 172 H Calcium 8.3 L Magnesium 08/19/16 03:00 WBC Hgb Hct Plt Count INR APTT Sodium 136 Potassium 4.1 Chloride 105 Carbon Dioxide 24 BUN 8 Creatinine 0.66 L Glucose 109 H Calcium 8.3 L Magnesium 1.8 - VTE Reasons for not Prescribing Prophylaxis: Not indicated-Anticoagulated or INR therapeutic Documentation of Mechanical Device: Graduated compression elastic hosiery Consult Discharge Plan - Plan Referrals: Salvatore Norman MD [Primary Care Provider] -
[2016-08-19] MEDS: Chlorhexidine Rinse 15 ML MOUTHWASH MM SCH ×2 (08:16→20:09)
[2016-08-19] MEDS: Nicotine 21 MG PATCH.TD24 TD SCH (08:16)
[2016-08-19] MEDS: Aspirin 81 MG TAB.CHEW PO SCH (08:21)
[2016-08-19] MEDS ORDERED: Aspirin Enteric Coated 81 MG Tablet PO SCH (09:00)
[2016-08-19] MEDS ORDERED: *HR* Morphine 2 MG/ML SYRINGE IVP PRN (10:17)
[2016-08-19] MEDS ORDERED: Acetaminophen 325 MG TABLET PO PRN (10:17)
[2016-08-19] MEDS ORDERED: Nitroglycerin 0.4 MG TAB.SUBL SL PRN (10:17)
[2016-08-19] MEDS ORDERED: *HR* Promethazine 25 MG/ML VIAL IVP PRN (10:17)
[2016-08-19] MEDS ORDERED: *HR* Dextrose 50 % in Water (Syg) 50 ML SYRINGE IVP PRN (10:17)
[2016-08-19] MEDS ORDERED: D5% in Water 1,000 ML IVC PRN (10:17)
[2016-08-19] MEDS ORDERED: Ondansetron 4 MG/2 ML VIAL IVP PRN (10:17)
[2016-08-19] MEDS ORDERED: Dextrose Gel 15 GM PO PRN ×2 (10:17)
[2016-08-19] MEDS ORDERED: Naloxone 0.4 MG/ML INJ IVP PRN (10:17)
[2016-08-19] MEDS: Insulin LISPRO 300 UNITS/3 ML VIAL SQ SCH ×3 (11:20→20:10)
[2016-08-19] MEDS: *HR* Heparin 5,000 UNIT/ML VIAL SQ SCH (18:11)
[2016-08-20 04:45] LABS: Basophils % 0.4 %; Eosinophils # 0.1 K/mcL (0.0-0.6); Eosinophils % 0.8 %; Hematocrit 34.6 % (37.5-50.1); Hemoglobin 11.4 g/dL (12.9-16.9); Immature Granulocytes % 0.4 % (0-4); Immature Platelets 13.9 % (1.1-6.1); Lymphocytes % 17.5 %; Mean Corpuscular HGB Conc 32.9 g/dL (31.6-35.5); Mean Corpuscular Hemoglobin 29.2 pg (28.0-33.3); Mean Corpuscular Volume 88.7 fL (83.0-100.0); Mean Platelet Volume 12.6 fL (9.4-12.4); Monocytes # 1.3 K/mcL (0.0-1.3); Monocytes % 11.7 %; Red Cell Distribution Width 13.8 % (11.5-14.5); Segmented Neutrophils % 69.2 %
[2016-08-20 05:24] LABS: BUN/Creatinine Ratio 10 (6-26); Blood Urea Nitrogen 7 mg/dL (8-26); Calcium 8.3 mg/dL (8.6-10.8); Carbon Dioxide 25 mEq/L (19-29); Chloride 105 mEq/L (98-109); Glucose 120 mg/dL (70-99); Osmolality,Calculated 277 (280-300); Potassium 3.7 mEq/L (3.5-4.5); Sodium 134 mEq/L (136-145); eGFR For African Americans > 60 (> 60); eGFR For Non-African Americans > 60 (> 60)
[2016-08-20] MEDS: *HR* Heparin 5,000 UNIT/ML VIAL SQ SCH ×2 (05:50→18:04)
[2016-08-20 05:52] LABS: Neutrophils # 7.8 K/mcL (1.6-8.9); Platelet Count 87 K/mcL (140-400)
[2016-08-20 05:53] LABS: Platelet Estimate Decreased (Normal); Reactive Lymphocytes Present (Not Present)
[2016-08-20] MEDS: Insulin LISPRO 300 UNITS/3 ML VIAL SQ SCH ×4 (07:28→20:22)
[2016-08-20] MEDS: Nicotine 21 MG PATCH.TD24 TD SCH (08:12)
[2016-08-20] MEDS: Chlorhexidine Rinse 15 ML MOUTHWASH MM SCH ×2 (08:12→20:42)
[2016-08-20] MEDS: *HR* OxyCODONE/APAP 5/325 TABLET PO PRN ×3 (08:12→19:30)
--- NOTE | 2016-08-20 08:38 | Cardiothoracic Progress Note ---
Date of Encounter: 08/20/16 Time of Encounter: 08:36 - Assessment and plan (1) Coronary artery disease Current Visit: Yes Status: Acute The chest tubes and pacing wires were removed. We will check a stat portable chest x-ray. We will reduce the Lopressor dosage for borderline low blood pressure. Qualifiers: Coronary Disease-Associated Artery/Lesion type: [place] artery [place] vs. transplanted heart: [place] heart Associated angina: with unstable angina Qualified Code(s): I25.110 - Atherosclerotic heart disease of [place] coronary artery with unstable angina pectoris - Subjective Interval history: The patient has no complaints. Vital Signs, Last 4 Hours Temp Resp Pulse Ox 08/20/16 08:16 16 90 08/20/16 07:25 97.8 F Oxgyen Flow Rate Oxygen Flow Rate (LPM) 6 Clinical Data, last 8 Hours Output, Chest Tube Drainage 30 Amount [Mediastinal #3] Output, Chest Tube Drainage 20 Amount [Mediastinal #3] Output, Chest Tube Drainage 10 Amount [Mediastinal #2] Output, Chest Tube Drainage 10 Amount [Mediastinal #2] Output, Chest Tube Drainage 20 Amount [Upper Mediastinal #1] Output, Urine Amount 175 Output, Urine Amount 475 Weight 08/18/16 08/19/16 08/20/16 23:59 23:59 23:59 Weight 98.6 kg 110.2 kg Lungs are clear to percussion and auscultation. Heart is in a normal sinus rhythm. All incisions are healing well without signs of infection and the sternum is stable. - Labs 08/20/16 04:08 08/20/16 04:08 Lab Results, Last 24 hours 08/20/16 08/20/16 04:08 04:08 WBC 11.2 H Hgb 11.4 L Hct 34.6 L Plt Count 87 L Sodium 134 L Potassium 3.7 Chloride 105 Carbon Dioxide 25 BUN 7 L Creatinine 0.72 Glucose 120 H Calcium 8.3 L - VTE Reasons for not Prescribing Prophylaxis: Not indicated-Anticoagulated or INR therapeutic Documentation of Mechanical Device: Graduated compression elastic hosiery Consult Discharge Plan - Plan Referrals: Salvatore Norman MD [Primary Care Provider] -
[2016-08-20] MEDS: Aspirin 81 MG TAB.CHEW PO SCH (09:55)
[2016-08-20] MEDS ORDERED: *HR* Magnesium Sulfate 2 GM/50 ML PIGGYBACK IVPB ONE (14:45)
[2016-08-20] MEDS ORDERED: Lidocaine 2% Syringe 100 MG/5 ML IV ONE (14:45)
[2016-08-20] MEDS ORDERED: Mannitol 25% vial 12.5 GM/50 ML VIAL IVP ONE (14:45)
[2016-08-20] MEDS ORDERED: *HR* Heparin 10,000 UNIT/10 ML VIAL IV ONE (14:45)
[2016-08-20] MEDS ORDERED: Sodium Bicarbonate 50 MEQ/50 ML VIAL IVC ONE (14:45)
[2016-08-20] MEDS ORDERED: *HR* Phenylephrine 10 MG/ML VIAL IVC ONE (14:45)
[2016-08-20] MEDS ORDERED: Albumin Human 25% 25 GM/100 ML IV.SOLN IV ONE (14:45)
[2016-08-20] MEDS: *HR* HYDROcodone/Acet 5/325 mg TABLET PO PRN (21:37)
[2016-08-21] MEDS: *HR* OxyCODONE/APAP 5/325 TABLET PO PRN ×4 (00:10→20:21)
[2016-08-21 00:38] LABS: BUN/Creatinine Ratio 12 (6-26); Blood Urea Nitrogen 9 mg/dL (8-26); Calcium 8.9 mg/dL (8.6-10.8); Carbon Dioxide 25 mEq/L (19-29); Chloride 104 mEq/L (98-109); Glucose 134 mg/dL (70-99); Osmolality,Calculated 285 (280-300); Potassium 3.7 mEq/L (3.5-4.5); Sodium 137 mEq/L (136-145); eGFR For African Americans > 60 (> 60); eGFR For Non-African Americans > 60 (> 60)
[2016-08-21 00:45] LABS: Basophils # 0.1 K/mcL (0.0-0.2); Basophils % 0.4 %; Eosinophils # 0.2 K/mcL (0.0-0.6); Eosinophils % 1.7 %; Hematocrit 33.5 % (37.5-50.1); Immature Granulocytes % 0.6 % (0-4); Immature Platelets 14.5 % (1.1-6.1); Lymphocytes # 2.6 K/mcL (0.6-4.6); Lymphocytes % 22.6 %; Mean Corpuscular HGB Conc 32.8 g/dL (31.6-35.5); Mean Corpuscular Hemoglobin 28.9 pg (28.0-33.3); Mean Corpuscular Volume 87.9 fL (83.0-100.0); Mean Platelet Volume 12.6 fL (9.4-12.4); Monocytes # 1.2 K/mcL (0.0-1.3); Monocytes % 10.9 %; Neutrophils # 7.3 K/mcL (1.6-8.9); Platelet Count 90 K/mcL (140-400); Red Blood Count 3.81 M/mcL (4.19-5.50); Red Cell Distribution Width 13.5 % (11.5-14.5); Segmented Neutrophils % 63.8 %
[2016-08-21] MEDS: *HR* Heparin 5,000 UNIT/ML VIAL SQ SCH ×2 (05:41→17:09)
[2016-08-21] MEDS: Insulin LISPRO 300 UNITS/3 ML VIAL SQ SCH ×4 (07:52→20:33)
[2016-08-21] MEDS: Aspirin 81 MG TAB.CHEW PO SCH (07:59)
[2016-08-21] MEDS: Chlorhexidine Rinse 15 ML MOUTHWASH MM SCH ×2 (07:59→20:22)
[2016-08-21] MEDS: Nicotine 21 MG PATCH.TD24 TD SCH (07:59)
--- NOTE | 2016-08-21 08:52 | Cardiothoracic Progress Note ---
Date of Encounter: 08/21/16 Time of Encounter: 08:50 - Assessment and plan (1) Coronary artery disease Current Visit: Yes Status: Acute The patient is recovering well from his CABG3. He will begin ambulating the hallways today. The assessment and plan as outlined above was discussed with the patient and/or family members who expressed understanding and agreement. All questions were answered. Qualifiers: Coronary Disease-Associated Artery/Lesion type: [place] artery [place] vs. transplanted heart: [place] heart Associated angina: with unstable angina Qualified Code(s): I25.110 - Atherosclerotic heart disease of [place] coronary artery with unstable angina pectoris - Subjective Procedure(s) Performed: POD#3 S/P CABG3 Interval history: The patient is sitting comfortably at the bedside eating breakfast. He has no complaints. Vital Signs, Last 4 Hours Temp Pulse Resp BP Pulse Ox 08/21/16 07:55 91 08/21/16 07:23 97.6 F 93 22 102/75 95 Oxgyen Flow Rate Oxygen Flow Rate (LPM) 2 Clinical Data, last 8 Hours Output, Urine Amount 0 Output, Urine Amount 400 Weight 08/19/16 08/20/16 08/21/16 23:59 23:59 23:59 Weight 110.2 kg 102.6 kg - Physical Examination General: Conversant, No Apparent Distress Neck: No JVD, Normal carotid pulses Cardiac: Reg Rate and Rhythm, Normal S1 and S2, No Murmur Incision: No signs of infection, Dry/intact dressing Sternum: Stable Lungs: Normal Breath Sounds, No Wheeze, Rales, Rhonchi Neuro: Alert and responsive, No focal deficits noted Vascular: Normal capillary refill Skin: No rashes noted on visualized skin Extremities: No Clubbing, No Cyanosis, No Edema - Labs 08/21/16 00:35 08/21/16 00:14 Lab Results, Last 24 hours 08/21/16 08/21/16 00:14 00:35 WBC 11.4 H Hgb 11.0 L Hct 33.5 L Plt Count 90 L Sodium 137 Potassium 3.7 Chloride 104 Carbon Dioxide 25 BUN 9 Creatinine 0.77 Glucose 134 H Calcium 8.9 - VTE Reasons for not Prescribing Prophylaxis: Not indicated-Anticoagulated or INR therapeutic Documentation of Mechanical Device: Graduated compression elastic hosiery Consult Discharge Plan - Plan [place] [facility] [place] [Primary Care Provider] -
[2016-08-22] MEDS: *HR* Heparin 5,000 UNIT/ML VIAL SQ SCH ×2 (05:25→17:10)
[2016-08-22] MEDS: *HR* HYDROcodone/Acet 5/325 mg TABLET PO PRN ×4 (05:31→18:34)
--- NOTE | 2016-08-22 07:42 | Cardiothoracic Progress Note ---
Date of Encounter: 08/22/16 Time of Encounter: 07:41 - Assessment and plan (1) Coronary artery disease Current Visit: Yes Status: Acute The patient is recovering well from his CABG3. He will continue ambulating the hallways today. The assessment and plan as outlined above was discussed with the patient and/or family members who expressed understanding and agreement. All questions were answered. Qualifiers: Coronary Disease-Associated Artery/Lesion type: [place] artery [place] vs. transplanted heart: [place] heart Associated angina: with unstable angina Qualified Code(s): I25.110 - Atherosclerotic heart disease of [place] coronary artery with unstable angina pectoris - Subjective Procedure(s) Performed: POD#4 S/P CABG3 Interval history: The patient is resting comfortably in his hospital bed. He was able to ambulate in the hallways yesterday without difficulty. He has no complaints. Vital Signs, Last 4 Hours Temp Pulse Resp BP Pulse Ox 08/22/16 04:22 97.5 F L 102 15 118/77 94 08/22/16 04:20 18 94 Oxgyen Flow Rate Oxygen Flow Rate (LPM) 2 Clinical Data, last 8 Hours Output, Urine Amount 200 Output, Urine Amount 250 Output, Urine Amount 325 Output, Urine Amount 250 Output, Urine Amount 350 Weight 08/20/16 08/21/16 08/22/16 23:59 23:59 23:59 Weight 110.2 kg 102.6 kg 98.628 kg - Physical Examination General: Conversant, No Apparent Distress Neck: No JVD, Normal carotid pulses Cardiac: Reg Rate and Rhythm, Normal S1 and S2, No Murmur Incision: No signs of infection, Dry/intact dressing Sternum: Stable Lungs: Normal Breath Sounds, No Wheeze, Rales, Rhonchi Neuro: Alert and responsive, No focal deficits noted Vascular: Normal capillary refill Extremities: No Clubbing, No Cyanosis, No Edema - Labs 08/21/16 00:35 08/21/16 00:14 - VTE Reasons for not Prescribing Prophylaxis: Not indicated-Anticoagulated or INR therapeutic Documentation of Mechanical Device: Graduated compression elastic hosiery Consult Discharge Plan - Plan Referrals: Roby Carrasco MD [Partnered Physician] - (Spoke with Bailee in Cardiology office she said she would call the patient at home with the appointment) Salvatore Norman MD [Primary Care Provider] - 09/01/16 9:00 am Nahid Crocker MD [Partnered Physician] - 09/17/16 2:30 pm
[2016-08-22] MEDS: Insulin LISPRO 300 UNITS/3 ML VIAL SQ SCH ×4 (08:14→21:15)
[2016-08-22] MEDS: Aspirin 81 MG TAB.CHEW PO SCH (09:47)
[2016-08-22] MEDS: Nicotine 21 MG PATCH.TD24 TD SCH (09:48)
[2016-08-22] MEDS: Chlorhexidine Rinse 15 ML MOUTHWASH MM SCH ×2 (09:48→21:15)
[2016-08-22] MEDS: *HR* OxyCODONE/APAP 5/325 TABLET PO PRN (21:14)
[2016-08-23] MEDS: *HR* Heparin 5,000 UNIT/ML VIAL SQ SCH (05:04)
[2016-08-23] MEDS: *HR* HYDROcodone/Acet 5/325 mg TABLET PO PRN ×2 (05:08→09:34)
--- NOTE | 2016-08-23 07:35 | Discharge Summary ---
Date of Encounter: 08/23/16 Time of Encounter: 07:30 - Discharge Diagnosis (1) Coronary artery disease Priority: Primary Status: Acute Qualifiers: Coronary Disease-Associated Artery/Lesion type: [place] artery [place] vs. transplanted heart: [place] heart Associated angina: with unstable angina Qualified Code(s): I25.110 - Atherosclerotic heart disease of [place] coronary artery with unstable angina pectoris - Discharge Medications Prescriptions: OxyCODONE/APAP 5/325 [Percocet 5/325 MG] 1 each PO Q4HR PRN #50 tab PRN Reason: Severe Pain Nitroglycerin 0.4 mg SL Q5MIN PRN #20 PRN Reason: Chest Pain Atorvastatin [Lipitor] 80 mg PO HS #30 tab Lisinopril [Zestril] 5 mg PO DAILY #30 tablet Metoprolol [Lopressor] 25 mg PO BID #60 tab Nicotine Patch [Nicoderm] 21 mg TD DAILY #30 Home Medications: Aspirin [Lo-Dose Aspirin EC] 81 mg PO DAILY 08/17/16 [History] Atorvastatin [Lipitor] 80 mg PO HS #30 tab 08/23/16 [Rx] Lisinopril [Zestril] 5 mg PO DAILY #30 tablet 08/23/16 [Rx] Metoprolol [Lopressor] 25 mg PO BID #60 tab 08/23/16 [Rx] Nicotine Patch [Nicoderm] 21 mg TD DAILY #30 08/23/16 [Rx] Nitroglycerin 0.4 mg SL Q5MIN PRN #20 08/23/16 [Rx] OxyCODONE/APAP 5/325 [Percocet 5/325 MG] 1 each PO Q4HR PRN #50 tab 08/23/16 [Rx ] Allergies/Adverse Reactions: Allergies No Known Allergies Allergy (Verified 10/07/15 22:43) Date of admission: 08/17/16 11:58 Primary care physician: Salvatore Norman MD Consults: 08/17/16 10:18 Consult to Cardiac Rehabilitation-Phase1 [CONS] Routine Comment: Reason for Consult: post op cath Call Completed: Yes 08/18/16 11:35 Consult to Cardiac Rehabilitation-Phase1 [CONS] Routine Comment: Reason for Consult: Post open heart Call Completed: Yes Consult to Motor Racer [CONS] Routine Reason for SW Consult: open heart 08/19/16 10:17 Consult for Pharmacy Education [CONS] Routine Reason for Consult: Post-Op Heart Call Completed: Yes Consult to Occupational Therapy [CONS] Routine Comment: Evaluate, develop and implement POC Reason for Consult: Post-Op Heart Consult to Physical Therapy [CONS] Routine Comment: Evaluate, develop and implement POC Reason for Consult: Post open heart Procedure(s) Performed: 1. CABG 3 (ANGEL to LAD, SVG to OM1, SVG to RCA) performed August 18, 2016. 2. Endoscopic vein harvesting, greater saphenous vein from right lower extremity performed August 18, 2016. Discharging clinician: Werner Valadez Anticipated date of discharge: 08/23/16 - Patient Status Disposition: Home, Self-Care Condition: Good Functional capacity at discharge: independent ambulation Overall status at discharge: patient is progressing back to baseline - Discharge Instructions Follow Up With: Roby Carrasco MD [Partnered Physician] - (Spoke with Bailee in Cardiology office she said she would call the patient at home with the appointment) Salvatore Norman MD [Primary Care Provider] - 09/01/16 9:00 am Nahid Crocker MD [Partnered Physician] - 09/17/16 2:30 pm - Diet and Activity Activity: sternal precautions, no driving for four weeks, no lifting greater than 10 pounds for eight weeks Diet: low fat, low cholesterol - Hospital Course Hospital course: Mr. Barton is a 55 year old man who has experienced lower extremity numbness and shortness of breath. The patient underwent cardiac workup was found to have severe three-vessel CAD. He was recommended for CABG. The patient underwent CABG 3 on August 18, 2016. His postoperative course was uncomplicated. He was transferred to the telemetry unit on POD#2 and was ambulating the hallways without difficulty. The patient was discharged home on POD#5. - Time Spent with Patient Total time spent providing and/or coordinating discharge services: Physical Examination Vital Signs, Last 4 Hours Temp Pulse Resp BP Pulse Ox 08/23/16 05:05 84 08/23/16 04:46 97.4 F L 85 16 117/74 99 08/23/16 04:22 16 96 General: Conversant, No Apparent Distress HEENT: Atraumatic, Normocephaly, Trachea midline Neck: No JVD, Normal carotid pulses Cardiac: Reg Rate and Rhythm, Normal S1 and S2, No Murmur Lungs: Normal Breath Sounds, No Wheeze, Rales, Rhonchi Neuro: Alert and responsive, No focal deficits noted Vascular: Normal capillary refill Musculoskeletal: No Chest Wall Tenderness Extremities: No Clubbing, No Cyanosis, No Edema Open Heart Registry Aspirin Cont/Prescribed at DC: Yes Beta Stephanie Cont/Prescribed at DC: Yes Statin Cont/Prescribed at DC: Yes QUENTIN/ARB Cont/Prescribed at DC: Yes - VTE Reasons for not Prescribing Prophylaxis: Not indicated-Anticoagulated or INR therapeutic Documentation of Mechanical Device: Graduated compression elastic hosiery
[2016-08-23 07:44] VITALS: BP 96/67
[2016-08-23] MEDS: Insulin LISPRO 300 UNITS/3 ML VIAL SQ SCH (08:01)
[2016-08-23] MEDS: Nicotine 21 MG PATCH.TD24 TD SCH (08:04)
[2016-08-23] MEDS: Aspirin 81 MG TAB.CHEW PO SCH (08:04)
[2016-08-23] MEDS: Chlorhexidine Rinse 15 ML MOUTHWASH MM SCH (08:04)
== END 2016-08-23 09:35 | disposition home or self-care (01) | DRG 166 ==
LOC: INVDIALAB 08:11 → 2NENU 10:50 → ICNU 08-18 09:23 → 2NNU 08-20 19:45
PROVIDERS: ADMIT Emergency Medicine; ATTEND Thoracic Surgery (Cardiothoracic Vascular Surgery)